=== PATIENT | male | born 1950 | race Caucasian/White ===

== ENCOUNTER 2018-12-30 13:31 | Emergency (ER) | payer MEDICARE ==
[2018-12-30] MEDS ORDERED: CLINDAMYCIN 600MG/D5W 600 MG/50 ML BAG IV ONE (14:43)
[2018-12-30] MEDS ORDERED: LIDOCAINE 1% W/EPI 1:100,000 MDV 50 ML VIAL ONE (14:43)
[2018-12-30] MEDS ORDERED: KETOROLAC 30 MG/ML INJ ONE (14:43)
[2018-12-30] MEDS ORDERED: NA CHLORIDE 0.9% 1,000 ML ONE (14:43)
[2018-12-30 15:03] LABS: Absolute Lymphocytes (CBC) 1.2 K/uL (0.7-4.9); Absolute Monocytes 0.7 K/uL (0.1-1.3); Absolute Neutrophil 6.4 K/uL (1.8-8.0); Basophils % 0.5 % (0-1.3); Eosinophils % 0.6 % (0-4.4); Lymphocytes % 14.5 % (15.3-44.8); MPV 7.7 fL (7.6-11.3); Monocytes % 7.9 % (3.3-12.3); RBC Red Blood Cell Count 4.79 M/uL (4.33-5.43)
[2018-12-30 15:28] LABS: Albumin 4.2 g/dL (3.4-5.0); Bilirubin Total 1.2 mg/dL (0.2-1.0); Potassium 3.6 mmol/L (3.5-5.1); Protein, Total 7.8 g/dL (6.4-8.2)
--- NOTE | 2018-12-30 15:57 | EDPHYS ---
Physician Documentation [facility] Name: Bentely Kc Age: 68 yrs Sex: Male : 1950 Arrival Date: 12/30/2018 Time: 13:33 Bed 14 Private MD: Terrance Venegas ED Physician Machelle Rasheed HPI: 12/30 14:19 This 68 yrs old Male presents to ER via Ambulatory with complaints of Elbow ma2 swelling. 14:19 Onset: The symptoms/episode began/occurred suddenly, 1 day(s) ago. Associated signs and ma2 symptoms: Pertinent positives: decreased range of motion, erythema, fever, pain, swelling, warmth, Pertinent negatives: numbness, tingling, warmth. Severity of symptoms: At their worst the symptoms were moderate, in the emergency department the symptoms are unchanged. Historical: - Allergies: 13:36 Morphine; sv 13:36 OxyContin; sv 13:36 Topamax; sv - PMHx: 13:36 DVT; RSD; sv - PSHx: 13:36 Bilateral knee surgery; sv - Social history:: Patient/guardian denies using alcohol, street drugs, The patient lives with family. - Family history:: not pertinent. ROS: 14:19 Constitutional: Negative for fever, chills, and weight loss, Cardiovascular: Negative ma2 for chest pain, palpitations, and edema, Respiratory: Negative for shortness of breath, cough, wheezing, and pleuritic chest pain, Abdomen/GI: Negative for abdominal pain, nausea, diarrhea, and constipation, Neuro: Negative for headache, weakness, numbness, tingling, and seizure, Psych: Negative for depression, anxiety, suicide ideation, homicidal ideation, and hallucinations, Allergy/Immunology: Negative for hives, rash, and allergies. 14:19 MS/extremity: Positive for decreased range of motion, erythema, swelling, tenderness, warmth, area of erythema of left lateral elbow and decreased rom of left elbow, elbow joint is tender even at opposite part of the skin redness . 14:19 MS/extremity: Positive for ma2 14:19 All other systems are negative. Exam: 14:19 Constitutional: This is a well developed, well nourished patient who is awake, alert, ma2 and in no acute distress. Chest/axilla: Normal chest wall appearance and motion. Nontender with no deformity. No lesions are appreciated. Cardiovascular: Regular rate and rhythm with a normal S1 and S2. No gallops, murmurs, or rubs. Normal PMI, no JVD. No pulse deficits. 14:19 Respiratory: Lungs have equal breath sounds bilaterally, clear to auscultation and ma2 percussion. No rales, rhonchi or wheezes noted. No increased work of breathing, no retractions or nasal flaring. Abdomen/GI: Soft, non-tender, with normal bowel sounds. No distension or tympany. No guarding or rebound. No evidence of tenderness throughout. Back: No spinal tenderness. No costovertebral tenderness. Full range of motion. Neuro: Awake and alert, GCS 15, oriented to person, place, time, and situation. Cranial nerves II-XII grossly intact. Motor strength 5/5 in all extremities. Sensory grossly intact. Cerebellar exam normal. Normal gait. 14:19 Musculoskeletal/extremity: ROM: limited active range of motion, left elbow, limited passive range of motion, Circulation is intact in all extremities. Sensation intact. Joints: All joints are normal except left elbow joint effusion with area of cellulitis over lateral aspect of elbow, measuring 3x10 cm red warm and tender . 14:19 Skin: cellulitis, that is moderate, on the left arm. Vital Signs: 13:36 BP 144 / 77; Pulse 90; Resp 18; Temp 98.5(O); Pulse Ox 96% ; Weight 83.01 kg; Height 5 sv ft. 7 in. (170.18 cm); Pain 2/10; 13:36 Body Mass Index 28.66 (83.01 kg, 170.18 cm) sv MDM: 13:41 Patient medically screened. ma2 14:19 Differential diagnosis: abrasion, tendonitis, septic joint. ma2 15:53 Data reviewed: vital signs, nurses notes. Counseling: I had a detailed discussion with ma2 the patient and/or guardian regarding: the historical points, exam findings, and any diagnostic results supporting the discharge/admit diagnosis, the presence of at least one elevated blood pressure reading (>120/80) during this emergency department visit. Response to treatment: the patient's symptoms have markedly improved after treatment. ED course: patient has absolute contraindication to joint aspiration given cellulitis over olecranon and whole left lateral elbow, . ED course: patient need to be admitted for iv antibiotics and ortho consult, i talked with dr. murguia and agree to see him as inpatient.. however patient changed his mind and would like to go home on oral abx. I explained possibility of septic elbow and possibility of losing the elbow and possibly the left upper extremity he understands risk , aox4 and capable of making decisions.. . 15:58 Differential diagnosis: septic elbow is possibility given elevated CRP, need to be ma2 admitted, patient would like to go home ama. 12/30 14:07 Order name: CBC with Diff; Complete Time: 15:57 [facility] 12/30 14:07 Order name: CMP; Complete Time: 15:32 [facility] 12/30 14:07 Order name: CRP; Complete Time: 15:32 [facility] 12/30 14:07 Order name: ESR; Complete Time: 15:57 [facility] 12/30 14:07 Order name: Blood Culture Adult (2) [facility] 12/30 14:18 Order name: NPO; Complete Time: 14:45 ma2 Administered Medications: 14:45 CANCELLED (Physician Discretion): Ketorolac 30 mg IVP once aj 15:10 Drug: NS 0.9% 1000 ml Route: IV; Rate: 1 bolus; Site: right forearm; aj 16:09 Follow up: Response: No adverse reaction; IV Status: Completed infusion; IV Intake: aj 1000ml 16:08 Drug: Clindamycin 600 mg Route: IVPB; Infused Over: 30 mins; Site: right forearm; aj 16:47 Follow up: Response: No adverse reaction; IV Status: Completed infusion; IV Intake: 50mlaj 16:48 Not Given (Physician Discretion): Lidocaine-Epinephrine -2 % (1:100,000) 10 ml aj Infiltration once; to bedside Disposition: 12/30/18 15:57 Discharged to Home. Impression: Effusion, left elbow, Olecranon bursitis, left elbow, Cellulitis of left upper limb. - Condition is Stable. - Discharge Instructions: Bursitis, Cellulitis, Adult, Elbow Bursitis. - Prescriptions for Clindamycin HCl 300 mg Oral Capsule - take 1 capsule by ORAL route every 6 hours for 10 days; 40 capsule. - Medication Reconciliation Form, Thank You Letter, Antibiotic Education, Prescription Opioid Use form. - Follow up: Neri Murguia MD; When: 1 - 2 days; Reason: Continuance of care. Signatures: Dispatcher [employer] Leatha Haney RN RN sv Myers, Amanda, RN RN aj Alzahri, Mohammad, MD MD ma2 Corrections: (The following items were deleted from the chart) 14:21 14:19 MS/extremity: Positive for decreased range of motion, erythema, swelling, ma2 tenderness, warmth, area of erythema of left lateral elbow and decreased rom of left elbow, elbow joint is tender even at opposite part of the skin redness , ma2 14:30 14:17 CSF Culture+BA.LAB.BRZ ordered. EDMS EDMS 14:45 14:18 Toradol [Ketorolac 30 mg IVP once] ordered. [facility] 14:51 14:19 Joint Treatment: Aspiration of left elbow using 16 gauge needle, Lidocaine, ma2 Removed Dressed with 4x4s, Patient tolerated well. ma2 15:21 14:17 CSF TOTAL PROTEIN+C.LAB.BRZ ordered. EDMS EDMS 16:11 14:29 Protein, Total ordered. EDMN EDMS 16:49 15:57 12/30/2018 15:57 Discharged to Home. Impression: Effusion, left elbow; Olecranon aj bursitis, left elbow; Cellulitis of left upper limb. Condition is Stable. Forms are Medication Reconciliation Form, Thank You Letter, Antibiotic Education, Prescription Opioid Use. Follow up: Neri Murguia; When: 1 - 2 days; Reason: Continuance of care. ma2
--- NOTE | 2018-12-30 15:57 | ER ---
Nurse's Notes [facility] Name: Bentley Kc Age: 68 yrs Sex: Male : 1950 Arrival Date: 12/30/2018 Time: 13:33 Bed 14 Private MD: Terrance Venegas Diagnosis: Effusion, left elbow;Olecranon bursitis, left elbow;Cellulitis of left upper limb Presentation: 12/30 13:35 Presenting complaint: Patient states: left elbow swelling, redness, pain x 1 week. sv Fever Tmax 100.5. Transition of care: patient was not received from another setting of care. Onset of symptoms was December 2018. Care prior to arrival: None. 13:35 Method Of Arrival: Ambulatory sv 13:35 Acuity: RICCI 3 sv Historical: - Allergies: 13:36 Morphine; sv 13:36 OxyContin; sv 13:36 Topamax; sv - PMHx: 13:36 DVT; RSD; sv - PSHx: 13:36 Bilateral knee surgery; sv - Social history:: Patient/guardian denies using alcohol, street drugs, The patient lives with family. - Family history:: not pertinent. Assessment: 15:00 General: Appears in no apparent distress. comfortable, Behavior is calm, cooperative, aj appropriate for age. Pain: Complains of pain in left elbow. Neuro: Level of Consciousness is awake, alert, obeys commands, Oriented to person, place, time, situation, Appropriate for age. Respiratory: Airway is patent Trachea midline Respiratory effort is even, unlabored, Respiratory pattern is regular, symmetrical. Derm: Skin is intact, is healthy with good turgor, Skin is pink, warm \T\ dry. normal, Reports pain that is 8 out of 10 on a pain scale. Musculoskeletal: Reports pain in left elbow. Vital Signs: 13:36 BP 144 / 77; Pulse 90; Resp 18; Temp 98.5(O); Pulse Ox 96% ; Weight 83.01 kg; Height 5 sv ft. 7 in. (170.18 cm); Pain 2/10; 13:36 Body Mass Index 28.66 (83.01 kg, 170.18 cm) sv ED Course: 13:33 Patient arrived in ED. mr 13:33 Terrance Venegas DO is Private Physician. mr 13:36 Triage completed. sv 13:36 Arm band placed on. sv 13:41 Machelle Rasheed MD is Attending Physician. ma2 14:19 Erika Linda, RN is Primary Nurse. aj 14:48 Initial lab(s) drawn, by ny, sent to lab. First set of blood cultures drawn by me. 3 Inserted saline lock: 20 gauge in right forearm, using aseptic technique. Blood collected. 15:05 Second set of blood cultures drawn by ny. 3 15:56 Neri Murguia MD is Referral Physician. ma2 Administered Medications: 14:45 CANCELLED (Physician Discretion): Ketorolac 30 mg IVP once aj 15:10 Drug: NS 0.9% 1000 ml Route: IV; Rate: 1 bolus; Site: right forearm; aj 16:09 Follow up: Response: No adverse reaction; IV Status: Completed infusion; IV Intake: aj 1000ml 16:08 Drug: Clindamycin 600 mg Route: IVPB; Infused Over: 30 mins; Site: right forearm; aj 16:47 Follow up: Response: No adverse reaction; IV Status: Completed infusion; IV Intake: 50mlaj 16:48 Not Given (Physician Discretion): Lidocaine-Epinephrine -2 % (1:100,000) 10 ml aj Infiltration once; to bedside Intake: 16:09 IV: 1000ml; Total: 1000ml. aj 16:47 IV: 50ml; Total: 1050ml. aj Outcome: 15:57 Discharge ordered by . ma2 16:49 Patient left the ED. aj Signatures: Leatha Contreras RN RN sv Myers, Amanda, RN RN aj Rivera, Mary mr [place], [place] [id number] Machelle Rasheed MD MD ma2
== END 2018-12-30 16:49 | disposition home or self-care (01) ==
LOC: ER 13:31
DX: M70.32 Other bursitis of elbow, left elbow (principal); M25.422 Effusion, left elbow; L03.114 Cellulitis of left upper limb; Z88.6 Allergy status to analgesic agent
CPT/HCPCS: 87040 ×2; 85025; 36415; 85652; 80053; 86140; J7030; 96361; 96365; 99283

== ENCOUNTER 2022-10-06 07:20 | Day surgery (SDC) | payer OTHER ==
[2022-09-22 12:30] LABS: Specific Gravity 1.012 (1.005-1.030); Urine Bilirubin NEGATIVE (Negative); Urine Blood Negative (Negative); Urine Clarity Clear (Clear); Urine Color Light-Yellow (Yellow); Urine Glucose NEGATIVE (Negative); Urine Protein NEGATIVE (Negative); Urine Urobilinogen Normal (Normal)
[2022-09-22 12:36] LABS: Absolute Lymphocytes (CBC) 1.1 K/uL (0.7-4.9); Lymphocytes % 21.4 % (15.3-44.8); MPV 7.3 fL (7.6-11.3); RBC Red Blood Cell Count 4.94 M/uL (4.33-5.43)
[2022-09-22 12:47] LABS: Potassium 4.2 mmol/L (3.5-5.1)
[2022-10-06 07:48] LABS: Protime INR 0.99
[2022-10-06] MEDS ORDERED: Ringers Lactate 1,000 ML IV ONE (07:59)
[2022-10-06] MEDS ORDERED: CEFAZOLIN SODIUM 2 GM/VIAL ONE (07:59)
[2022-10-06] MEDS ORDERED: NS 0.9% VIAL 10 ML ONE (08:50)
[2022-10-06] MEDS ORDERED: FENTANYL CITR 100 MCG/2 ML ONE (08:50)
[2022-10-06] MEDS ORDERED: LIDOCAINE 1% MPF 5 ML VIAL ONE (08:50)
[2022-10-06] MEDS ORDERED: propofoL 200 MG/20 ML VIAL IV ONE (08:50)
[2022-10-06] MEDS ORDERED: ONDANSETRON 4 MG/2 ML VIAL ONE (09:14)
[2022-10-06 10:13] VITALS: O2SAT 98
--- NOTE | 2022-10-06 10:44 | OP ---
Surgeon: WAQAS GLOVER Preoperative Diagnosis: Unfavorable intermediate risk prostate cancer. Postoperative Diagnosis: Unfavorable intermediate risk prostate cancer. Principal Procedures: 1.Transrectal ultrasound-guided insertion of fiducial markers. 2.Transrectal ultrasound-guided SpaceOAR gel insertion. Indication For Procedure: Mr. Kc presented to the Urology Clinic with elevated PSA and underwent a biopsy revealing unfavorable intermediate risk prostate cancer. He has elected to proceed with ra diation treatment for his prostate cancer and was started on advanced anti-androgen therapy with the [facility] and Dr. Castaneda. He thus presents today for insertion of fiducial markers and SpaceOA R gel insertion to create additional space between the rectum and the base of the prostate to decreas e the rectal toxicity. Procedure In Detail: The patient was consented in the preoperative holding area before being transfe rred to the. DICTATION ENDS HERE. SHIRA/MAINE Voice ID: [id number] Report ID: [id number]
[2022-10-06 11:01] VITALS: BP 112/70; TEMP 97
--- NOTE | 2022-10-06 11:38 | P.OP ---
Date of Service: 10/06/22 Preoperative diagnosis: Unfavorable intermediate risk prostate cancer Postoperative diagnosis: Unfavorable intermediate risk prostate cancer Principal procedure: Transrectal ultrasound-guided fiducial markers placement (two/2), and Transrectal ultrasound-guided SpaceOAR gel insertion Indication for procedure: Mr. Parikh is a 72-year-old gentleman who presented to the urology clinic with an elevated PSA and underwent a biopsy of the prostate revealing unfavorable intermediate risk prostate cancer. He has elected to proceed with definitive management of his prostate cancer via radiation therapy, and he has been started on advanced antiandrogen therapy along with traditional androgen deprivation therapy in preparation for IMRT. SpaceOAR gel insertion was requested to increase the space between the rectum and and the base of the prostate for optimal treatment. Findings and Operative Technique The patient was consented in the preoperative holding area before being transferred to the operative suite where general anesthesia was induced. Ancef 2 g IV antimicrobial prophylaxis was provided, and pneumoboots were provided for DVT prophylaxis. He was placed in the high lithotomy position, padded and secured to the table appropriately. His genitalia was elevated out of his perineal region using an Ioban drape, and the perineal area was prepped with Betadine and draped in standard fashion. The transrectal ultrasound probe was inserted into his rectum freehand before being held in place by a mechanical arm. The prostate was then visualized using the stepper device from the seminal vesicles to the apex and peritoneal fat region. Fiducial markers placement: The first fiducial marker was then placed under direct ultrasound vision via the perineal area into the apical anterior region of the prostate on the left and successfully implanted there. An additional fiducial marker was then placed via the right side of the perineum this time into the anterior base of the prostate on the right. I then turned my attention to using the beveled SpaceOAR needle associated with sterile saline and navigated that needle via the midline of the perineum over the rectal help and into Dennonvillier's space. I was then able to navigate it in that space to the midline mid zone of the prostate. This was confirmed in sagittal as well as axial dimensions. Aspiration revealed absence of blood or stool, and an injection of less than 1 cc of sterile water did nicely hydrodissect a space in the midline. As a result, the SpaceOAR gel components via the adapter syringe were then connected to the needle and the SpaceOAR gel was successfully instilled in the midline and visualized to extend from apex to base nicely elevating the prostate and it from the rectum. The needle was then removed under direct vision, and a the space created was visualized in axial as well as sagittal dimensions and found to be an excellent separation. As a result, he was taken out of the lithotomy position, awakened from general anesthesia, transferred to a stretcher, and then transferred to the recovery room in good condition. Complications: None Discharge disposition: He should plan to follow-up in the urology clinic in 4 to 6 months, once the radiation therapy is complete. Should he have issues of urologic nature that developed during radiation treatment that require my management beyond that of the radiation oncologist, I will be happy to assist.
== END 2022-10-06 10:50 | disposition home or self-care (01) ==
LOC: OR 07:20
PROVIDERS: ATTEND Urology
PROC: 0VH43YZ Insertion of Other Device into Prostate and Seminal Vesicles, Percutaneous Approach (ICD-10-PCS; principal; 2022-10-06 08:30)
DX: C61 Malignant neoplasm of prostate (principal); I10 Essential (primary) hypertension; I82.409 Acute embolism and thrombosis of unspecified deep veins of unspecified lower extremity; Z79.01 Long term (current) use of anticoagulants
CPT/HCPCS: 85025; 80048; 36415 ×2; 85610; 81003; 55874; J2704; J2001; J3010; A4216; J7120; J2405